=== PATIENT | male | born 1980 | race Caucasian/White ===

== ENCOUNTER 2024-03-26 08:01 | Outpatient (CLI) | payer BC | END 2024-03-26 08:02 | disposition home or self-care (01) | LOC: BICRAD 08:01 | PROVIDERS: ATTEND Internal Medicine Rheumatology | DX: M54.2 Cervicalgia (principal); M46.1 Sacroiliitis, not elsewhere classified | CPT/HCPCS: 72052; 72202 ==

== ENCOUNTER 2024-04-27 08:31 | Outpatient (CLI) | payer BC | END 2024-04-27 08:32 | disposition home or self-care (01) | LOC: MRI 08:31 | PROVIDERS: ATTEND Internal Medicine Rheumatology | DX: M47.816 Spondylosis without myelopathy or radiculopathy, lumbar region (principal); M47.817 Spondylosis without myelopathy or radiculopathy, lumbosacral region | CPT/HCPCS: 72148 ==